=== PATIENT | male | born 1980 | race Caucasian/White ===

== ENCOUNTER 2018-06-20 09:01 | Outpatient (CLI) | payer OTHER, SELFPAY ==
[2018-06-20 09:32] VITALS: BP 149/92; PULSE 65; RESP 21; TEMP 37; O2SAT 98; BMI 32.5
[2018-06-20 10:29] LABS: Hemoglobin A1C 5.4 % (0.0-7.0)
[2018-06-20 10:32] LABS: Alanine Aminotransferase 30 U/L (12-78); Albumin Level 4.7 gm/dL (3.4-5.0); Albumin/Globulin Ratio 1.1 (1.1-1.8); Alkaline Phosphatase 107 U/L (46-116); Anion Gap 12.3 mEq/L (5-15); Aspartate Amino Transferase 16 U/L (15-37); Bilirubin,Total 0.7 mg/dL (0.2-1.0); Blood Urea Nitrogen 11 mg/dL (7-18); Calcium 9.7 mg/dL (8.5-10.1); Carbon Dioxide 30 mmol/L (21.0-32.0); Chloride 101 mmol/L (98-107); Chol/HDL Ratio 3.8 (1-3.5); Cholesterol 195 mg/dL (140-200); Creatinine Clearance Estimated 139 mL/min (50-200); Creatinine,Serum 1.02 mg/dL (0.70-1.30); Estimated Glomerular Filt Rate 82 ml/min (>60); GFR (African American) 99 ML/MIN (>60); Globulin 4.2 gm/dl (1.3-3.2); Glucose 94 mg/dL (74-106); HDL Cholesterol 52 mg/dL (27-67); LDL Cholesterol 129 mg/dL (0-130); Potassium 4.3 mmoL/L (3.5-5.1); Sodium 139 mmol/L (136-145); Total Protein,Serum 8.9 gm/dL (6.4-8.2); Triglycerides 72 mg/dL (30-200); VLDL Cholesterol 14 mg/dL (0-40)
== END 2018-06-20 10:42 | disposition home or self-care (01) ==
LOC: UTC.OUT 11:08
PROVIDERS: PCP Nurse Practitioner Family; Visit Provider Nurse Practitioner Family
DX: R42 Dizziness and giddiness (principal); Z79.899 Other long term (current) drug therapy
CPT/HCPCS: 80053; 80061; 83036

== ENCOUNTER → 2018-09-22 15:54 | Outpatient (POV) | payer OTHER, SELFPAY | PROVIDERS: Visit Provider Dermatology | DX: Z00.00 Encounter for general adult medical examination without abnormal findings (principal) ==

== ENCOUNTER 2020-12-04 20:18 | Emergency (ER) | payer OTHER, SELFPAY ==
[2020-12-04 21:10] VITALS: BP 160/90; PULSE 88; RESP 16; TEMP 38.2; O2SAT 97; BMI 32.5
[2020-12-04 21:44] LABS: UTC Influenza A Antigen Negative (Negative)
[2020-12-04 21:45] LABS: UTC Influenza B Antigen Negative (Negative)
--- NOTE | 2020-12-04 21:53 | HMH.EDUTC ---
[facility] [place] Clinical Impression: Viral syndrome Disposition: Home, Self-Care Condition on Discharge: Good Instructions: DI for COVID-19 (Suspected or Confirmed ), Preventing the Spread of Coronavirus Discharge Instructions Additional Instructions: *Monitor Temp, Over the counter Motrin or Tylenol as directed/as needed Tylenol every 4 hours and Motrin every 6 hours (as long as your family doctor has told you that you can take it) for fever or pain. and straight to ER if unable to lower temp less than 101.0 after medication given *Warm salt water gargles may help to soothe the throat *Throat Lozenges *Warm fluids like tea with honey may help to soothe the throat *Sleep elevated *Humidifier/Vaporizer Follow up IMMEDIATELY for new or worsening symptoms or no Noticeable improvement over the next 48-72 hours. 911 for difficulty breathing or swallowing You were tested for today for COVID19 your test result should be back in the next 24-48 hours, you was given handout on how to check for your results on [facility] if you have issues or no internet access you may call the [facility] You was given a handout with instructions for Self Quarantine and Self isolation for while you wait on test results and what to do if they are positive If you are positive the Health Dept will be contacting you also Make sure to take your Vitamins Vit. C Vit D and Zinc if you can take them Referrals: Gómez Degroot [Primary Care Provider] - As needed Forms: Work/School Release Time of Disposition: 21:55 Medical Decision Making - Joseph Inquiry Pt receiving controlled substance: No Joseph was queried for this patient: No Vital Signs: 12/04/20 21:10 Temperature 100.7 F H Temperature Source Oral Pulse Rate [Right Brachial] 88 Respiratory Rate 16 Blood Pressure [Right Arm] 160/90 H Blood Pressure Mean [Right Arm] 113 Blood Pressure Source [Right Arm] Automatic Cuff Blood Pressure Position [Right Arm] Sitting 02 Sat by Pulse Oximetry 97 Oxygen Delivery Method Room Air - Lab Data Lab Results 12/04/20 21:38: Influenza Type A Ag Negative, Influenza Type B Ag Negative Orders (Tests/Meds): ORDERS Category Date Time Status Covid-19 Nasal PCR ([facility]) Routine Lab 12/04/20 21:39 Ordered [facility] HPI - General Stated complaint: covid test Time Seen by Provider: 12/04/20 21:53 Mode of Arrival: Ambulatory Source of Information: Patient Limitations: No Limitations Description of Symptoms (Recalled from Triage Doc. by RN): PATIENT C/O FEVER, FATIGUE, COUGH, AND BODY ACHES HEENT Symptoms (Recalled from RN notes): Yes Resp Symptoms (Recalled from RN notes): No Skin Symptoms (Recalled from RN notes): No MS Symptoms (Recalled from RN notes): No Functional Status (Recalled from RN notes): WNL - History of Present Illness Provider Complaint: Patient states that he is concerned he may have COVID and wanted to get tested States that he has been having body aches, chills, feeling achy and tired so he came in to get tested States that he has not been exposed that is aware of - Related Data Allergies Allergy/AdvReac Type Severity Reaction Status Date / Time No Known Allergies Allergy Verified 06/20/18 09:36 - Worker's Comp Is this a Worker's Comp case?: No [facility] History - Hepatitis A Screen Drug use history?: No High risk sexual behaviors?: No History of sexually transmitted infection?: No Currently employed?: No Childcare worker?: No Do you have indoor plumbing?: Yes Do you have electricity?: Yes Attestation statement:: This patient has been screened for Hepatitis A risk factors. I have reviewed the patient's past medical history: Yes Medical History: Denies:: Cancer, Diabetes Mellitus Type 1, Diabetes Mellitus Type 2, MRSA Amputation: No - Social History Alcohol Intake: never Occupational Status: employed ROS Obtained: Yes All systems reviewed & no additional complaints, Yes Systems reviewed as appropriat
[2020-12-04 21:56] VITALS: BP 160/90; PULSE 88; RESP 16; TEMP 38.2; O2SAT 97
== END 2020-12-04 22:15 | disposition home or self-care (01) ==
PROVIDERS: Emergency Provider Nurse Practitioner; PCP Family Medicine
DX: U07.1 COVID-19 (principal); B34.9 Viral infection, unspecified
CPT/HCPCS: 87804; 99202; C9803; G0463; U0003; U0005

== ENCOUNTER → 2021-10-03 14:38 | Outpatient (CLI) | payer BC, SELFPAY ==
[2021-10-03 15:11] LABS: Basophils # 0.2 K/mm3 (0-0.2); Basophils % 2.2 % (0.1-2.0); Eosinophils # 0.2 K/mm3 (0.0-0.4); Eosinophils % 2.5 % (0.1-12.0); Hematocrit 46.1 % (42.0-52.0); Lymphocytes # 2.8 K/mm3 (0.7-4.5); Lymphocytes % 29.1 % (10-50); Mean Corpuscular HGB Conc 32.6 g/dL (31.8-35.4); Mean Corpuscular Volume 88.8 fl (80-94); Mean Platelet Volume 9.1 fl (7.4-10.4); Monocytes # 0.6 K/mm3 (0.1-1.0); Monocytes % 6.6 % (1.7-9.3); Neutrophils # 5.8 K/mm3 (1.8-7.8); Neutrophils % 59.7 % (37.0-80.0); Platelet Count 376 K/mm3 (142-424); Red Blood Count 5.19 M/mm3 (4.60-6.20); Red Cell Distribution Width 13.4 % (11.5-17.5); White Blood Count 9.7 K/mm3 (4.8-10.8)
[2021-10-03 15:25] LABS: Chloride 102 mmol/L (98-107); Potassium 4.1 mmoL/L (3.5-5.1); Sodium 138 mmol/L (136-145)
[2021-10-03 15:28] LABS: Blood Urea Nitrogen 9 mg/dl (9-20); Estimated Glomerular Filt Rate 107 ml/min (>60); GFR (African American) 129 ML/MIN (>60)
[2021-10-03 15:29] LABS: Anion Gap 11.1 mEq/L (5-15); Calcium 9.9 mg/dl (8.4-10.2); Carbon Dioxide 29 mmol/L (22.0-30.0); Glucose 90 mg/dl (74-100)
== END ==
PROVIDERS: PCP Nurse Practitioner Family; Visit Provider Internal Medicine
DX: Z01.812 Encounter for preprocedural laboratory examination (principal); Z20.822 Contact with and (suspected) exposure to COVID-19; R07.9 Chest pain, unspecified
CPT/HCPCS: 36415; 80048; 85025; C9803; U0003; U0005

== ENCOUNTER 2021-10-05 07:29 | Day surgery (SDC) | payer BC, SELFPAY ==
[2021-10-05] VITALS (12 sets, daily range): BP systolic 111–152; BP diastolic 64–94; PULSE 62–80; RESP 18; TEMP 36.2; O2SAT 92–99; BMI 31.8
--- NOTE | 2021-10-05 | IR_ITS ---
APPROVED REPORT Patient Location: Outpatient [employer] Developer: KEATON Casarez RT (R) PROCEDURES Left heart catheterization Left ventriculogram Selective coronary angiogram INDICATION Abnormal echocardiogram with regional wall motion abnormality, Angina pectoris, Strong family history of coronary artery disease, Informed consent was obtained prior to the procedure. COMPLICATIONS None Estimated Blood Loss: Less than 10 mls TECHNIQUE One percent lidocaine used to anesthetize the right anterior aspect of the wrist. The right radial artery was accessed via the Seldinger technique. A 6 Stateless sheath was placed in the right radial artery. 2.5 mg of verapamil, 800 mcg of nitroglycerin, 1mg Lidocaine and 5000 U Heparin were given through the arterial sheath. The papa catheter and 6 Stateless JL 3 guide catheter were also used to perform left heart catheterization, left ventriculogram and selective coronary angiogram. At the end of the procedure the sheath was removed good hemostasis was achieved using Traclet band, patient was transferred to the postop holding area in stable condition. ANGIOGRAPHIC RESULTS The left main artery Normal The left anterior descending artery Normal The circumflex artery Dominant normal The right coronary artery Normal The WELCH ventriculogram reveals Normal 65% The left ventricular end-diastolic pressure Normal 10 mmHg IMPRESSION Normal coronary arteries Normal ejection fraction Normal left ventricular end-diastolic pressure PLAN 1. Evaluation of noncardiac chest pain Electronically signed by : Jason Johnston MD 10/05/2021 10:50:51
--- NOTE | 2021-10-05 | CA_ITS ---
APPROVED REPORT EXAM: Comprehensive 2D, Doppler, and color-flow Echocardiogram Fire Investigation Manager: Gricelda Reeves, RT(R) Ht: 5 ft 9 in Wt: 215lbs BSA: 2.13 BP: 145/97 mmHg Indications: CM, ABN stress echo, abn EKG, r/o HOCM, HTN, hyperlipidemia, CP, Sob Echo Enhancing Agent Indication: Endocardial border delineation Agent(s) / Amount(s) Used: Definity 2 cc 2D Dimensions LVOT 2.02 cm (M/F) 1.5-2.5 LA Volume 27.00 mL LA Volume Index 12.67 mL/m2 (M/F) 16-34 M-Mode Dimensions RVDd 2.72 cm (0.9-2.6) LA Diam 3.87 cm (1.9-4.0) LVDd 4.44 cm (3.5-5.7) Ao Diam 3.09 cm (2.0-3.7) LVDs 3.22 cm (3.5-5.7) IVSd 0.89 cm (0.6-1.1) PWd 0.75 cm (0.6-1.1) EF (Teich) 53.60% FS 27.50% EDV (Teich) 89.60 mL ESV (Teich) 41.60 mL LV Diastology E Decel Time 260.00 (160-240 msec) E/A Ratio 1.39 MED E' 10.50 (< 7 cm/sec) E'/MED E' Ratio 9.62 (>14) LAT E' 17.80 (<10 cm/sec) E/LAT E' Ratio 5.67 (>14) Aortic Valve LVOT Max 116.00 (70-110 cm/s) LVOT VTI 22.71 cm Mitral Valve MV A Velocity 73.00 (40-130 cm/s) E/A Ratio 1.39 MV Decel. Time 260.00 (160-240 ms) Left Ventricle Left atrium is normal size, left ventricle is normal size, left ventricle wall thickness is upper limit of the normal, there is no evidence of hypertrophic cardiomyopathy, estimated ejection fraction 55% with no regional wall motion abnormality, diastolic parameters are within normal range. Definity contrast was utilized to delineate the endocardial surfaces. Right Ventricle Right atrium and right ventricle are normal size and contractility. Aortic Valve Aortic valve is grossly normal there is no aortic stenosis or aortic insufficiency. Mitral Valve Mitral valve grossly normal, there is trace mitral regurgitation. Tricuspid Valve Tricuspid grossly normal, there is trace tricuspid regurgitation, tricuspid regurgitation jet velocity is inadequate for calculation of the right ventricular systolic pressure. Pulmonic Valve Pulmonic valve is poorly visualized. Great Vessels Aortic root is normal size. Inferior vena cava is abnormal. Pericardium No significant pericardial effusion noted. Conclusion 1. Normal left ventricular size, left ventricular systolic function, estimated ejection fraction 55% with minimal motion abnormality, no significant left ventricular enlargement and evidence of systolic Evidence of hypertrophy cardiomyopathy, diastolic parameters are within normal limits. 2. Trace mitral and tricuspid regurgitation. 3. No significant pericardial effusion. 4. Inferior vena cava is normal size with normal inspiratory collapse. Electronically signed by : Vern Grove MD 10/05/2021 15:01:01
--- NOTE | 2021-10-05 08:06 | HMH.ANESCL ---
[facility] Anesthesia Checklist - Patient Identification Patient Identification: Arm Band - Structural Data Admitted From: Home Planned Operative Procedure/s: HALINA Consent for Planned Operative Procedure(s) Verified: Yes - NPO Status Verified Time NPO: 00:00 - Airway Assessment C-Spine Mobility Assessed: Yes TMJ Mobility Assessed: Yes Dentition: Good Dentition - Neurological Assessment Level of Consciousness: Awake Hx Seizures: No Numbness or tingling in extremities: No - Anesthesia Plan Anesthesia Risk discussed: Yes Anesthesia Plan: Verified ASA Class: II Anesthesia Type: MAC [facility] History I have reviewed the patient's past medical history: Yes Medical History: Reports:: Asthma, Hypertension Denies:: Cancer, Diabetes Mellitus Type 1, Diabetes Mellitus Type 2, Internal Pacemaker, MRSA *Have you ever received a pneumonia vaccine?: No *Have you received a flu vaccine this season?: No Anesthesia experience/problems:: None Other Surgeries: Yes: Hernia Repair. No: Pacemaker Amputation: No Fractures: No - *Social History Last grade of school completed: 9th or 10th Smoking Status: Never smoker Alcohol Intake: never Substance Use Type: denies use *Occupational Status:: employed Housing: house Household Members: spouse *Travel in the last 8 weeks: None Family Hx:: Hypertension, Heart Attack, Stroke, Diabetes, Coronary Artery Disease, Cancer
--- NOTE | 2021-10-05 08:22 | HMH.PROC ---
[facility] Procedure Note Procedure Note:: Procedure cancelled per Dr. Grove
--- NOTE | 2021-10-05 13:53 | SUR.PHASEII ---
See cardiac cath for d/c assessment
== END 2021-10-05 13:54 | disposition home or self-care (01) ==
LOC: CATHLAB 07:33
PROVIDERS: Internal Medicine; Visit Provider Internal Medicine Cardiovascular Disease
DX: I42.9 Cardiomyopathy, unspecified (principal); I25.118 Atherosclerotic heart disease of native coronary artery with other forms of angina pectoris; Z82.49 Family history of ischemic heart disease and other diseases of the circulatory system; I10 Essential (primary) hypertension; R94.31 Abnormal electrocardiogram [ECG] [EKG]; R94.39 Abnormal result of other cardiovascular function study; Z79.899 Other long term (current) drug therapy
CPT/HCPCS: 93306; 93312; 93458; 99152; C1725; C1769; J1644; Q9957; Q9967

== ENCOUNTER → 2022-05-20 09:59 | Outpatient (CLI) | payer BC, OTHER, SELFPAY ==
[2022-05-20 11:24] LABS: Alanine Aminotransferase 36 U/L (12-78); Albumin Level 4.7 g/dl (3.5-5.0); Alkaline Phosphatase 87 U/L (38-126); Aspartate Amino Transferase 30 U/L (17-59); Bilirubin,Direct 0.3 mg/dl (0.0-0.4); Bilirubin,Indirect 0.5 mg/dL (0.0-0.9); Bilirubin,Total 0.8 mg/dl (0.2-1.3); Bilirubin,Unconjugated 0.6 mg/dL (0.0-1.1); Chol/HDL Ratio 3.9 (1-3.5); Cholesterol 163 mg/dl (140-200); HDL Cholesterol 42 mg/dl (40-60); Total Protein,Serum 7.5 g/dl (6.3-8.2); Triglycerides 103 mg/dl (30-150); VLDL Cholesterol 21 mg/dL (0-40)
[2022-05-20 11:35] LABS: Direct LDL Cholesterol 100.31 mg/dL (100-129)
== END ==
PROVIDERS: PCP Nurse Practitioner Family; Visit Provider Nurse Practitioner
DX: I10 Essential (primary) hypertension (principal); E78.2 Mixed hyperlipidemia
CPT/HCPCS: 36415; 80061; 80076

== ENCOUNTER 2023-05-26 11:49 | Outpatient (CLI) | payer BC, SELFPAY | END 2023-05-26 23:59 | LOC: RT 11:50 | PROVIDERS: PCP Nurse Practitioner Family; Visit Provider Nurse Practitioner | DX: I42.1 Obstructive hypertrophic cardiomyopathy (principal); R00.1 Bradycardia, unspecified | CPT/HCPCS: 93270 ==

== ENCOUNTER 2023-06-16 09:47 | Outpatient (CLI) | payer BC, SELFPAY ==
--- NOTE | 2023-06-16 10:00 | MR_ITS ---
APPROVED REPORT Fisheries Technician: CLINICAL INDICATION HCM evaluation TECHNIQUE Image Acquisition: Cardiac magnetic resonance (CMR) was performed on Siemens Espree MRI 1.5T scanner. Software platform sequences were performed using the [employer] MR B19 platform. A set of three-plane, low-resolution, large [id number] localizers were initially acquired. Then axial, coronal, sagittal TrueFISP, as well as axial HASTE images, were obtained. These were followed by gated TrueFISP breathold cinematic sequences obtained in the short axis with 8 mm slices and 2 mm gaps, 2-chamber (vertical long axis), 3-chamber, 4-chamber (horizontal long axis). A bolus of contrast was injected intravenously with first-pass sequences obtained in the short axis and four-chamber planes. After approximately 10 minutes, a TI chromosomal disorders counselor sequence was performed to determine the optimal TI time. Using the optimized TI time, delayed contrast enhancement segmented inversion???recovery TurboFLASH sequences were obtained in the short axis, 2-chamber, 3-chamber, and 4-chamber projections. 2D-velocity phase mapping was performed. Functional parameters were calculated by offline analysis on an independent workstation ([employer], [employer]). Contrast: ProHance??? (Gadoteridol) FINDINGS MORPHOLOGY AND FUNCTION Left ventricle: The left ventricle is normal in size. The indexed left ventricular end-diastolic volume (LVEDVi) is 63 ml/m2 (reference range 57-105 ml/m2 in males, 56-96 ml/m2 in females). Normal left ventricular systolic function is present. There is normal left ventricular wall thickness (maximum LV wall thickness is 8.3 mm). There are no regional wall motion abnormalities noted. LVEF is calculated at 58.4% (reference range 57-77%). Right ventricle: The right ventricle is normal in size. The indexed right ventricular end-diastolic volume (RVEDVi) is 70 ml/m2 (reference range 61-121 ml/m2 in males, 48-112 ml/m2 in females). Normal right ventricular systolic function is present. RVEF is calculated at 54.6% (reference range 52-72% in males, 51-71% in females). Atria: The left atrium is normal in size. The maximum indexed left atrial volume is 29 ml/m2 (reference range 26-52 ml/m2 in males, 27-53 ml/m2 in females). The right atrium is normal in size. The maximum indexed right atrial volume is 24 ml/m2 (reference range 18-90 ml/m2). Aorta: The diameter of the aortic annulus is normal, measuring 27 mm (coronal view reference range 21-30 mm in males, 19-27 mm in females). The diameter of the aortic sinus is normal, measuring 35 mm (coronal view reference range 25-42 mm in males, 24-36 mm in females). The diameter of the sinotubular junction is normal, measuring 26 mm (coronal view reference range 18-32 mm in males, 18-28 mm in females). The diameters of the ascending and descending thoracic aorta are normal. Main pulmonary artery: The main pulmonary artery diameter is normal. Pericardium: The pericardial thickness is normal. The pericardial thickness measures 1.5 cm (normal < 4.0 cm). There is no pericardial effusion. VALVES The valvular morphologies in the visualized sequences appear normal. There is no significant valvular stenosis or regurgitation of the mitral, aortic, tricuspid, or pulmonic valve noted visually. Systolic anterior motion of the mitral valve is not visualized. Ratio of pulmonary to systemic flow, Qp:Qs ratio = 1.0 (normal < or = 1.2), demonstrating no evidence of hemodynamically significant shunt. TISSUE CHARACTERIZATION Resting Perfusion: Normal myocardial blood flow at rest. No evidence of resting hypoperfusion. Myocardial Fibrosis and/or edema: Normal gadolinium kinetics are present. No evidence of late gadolinium enhancement is noted, consistent with absence of myocardial scarring, infarction, or necrosis. T2-weighted imaging demonstrates no evidence of myocardial edema or inflammation. OTHER No other significant findings are noted. However, this exam is focused on the cardiac structure and function. IMPRESSION Normal LV size with normal LV systolic function. LVEDVi= 63 ml/m2 and LVEF= 58.4%. Normal RV size with normal RV systolic function. RVEDVi= 70 ml/m2 and RVEF= 54.6%. No atrial enlargement. No CMR evidence of myocardial scarring, infarction, or necrosis. No evidence of myocardial edema or inflammation. Perfusion analysis demonstrates normal blood flow at rest with no evidence of resting hypoperfusion. Ratio of pulmonary to systemic flow, Qp:Qs ratio = 1.0 (normal < or = 1.2), demonstrating no evidence of hemodynamically significant shunt. Overall the study demonstrates normal biventricular systolic function. There is no increased LV wall thickness. No CMR evidence of HCM in this study. COMPARISON None CRITICAL RESULT None COMMUNICATION Per this written report The findings of this cardiac MR were reviewed, reported, and signed by Anthony Foster MD (Legal Investigator). Conclusion Electronically signed by : Phyllis Foster MD 06/19/2023 15:11:55
[2023-06-16 10:18] LABS: Blood Urea Nitrogen 11 mg/dl (9-20); Estimated Glomerular Filt Rate 92 ml/min (>60); GFR (African American) 111 ML/MIN (>60)
[2023-06-16] MEDS: SODIUM CHLORIDE 0.9% 10ML SYR (RAD ONLY) 10 ML IV (11:25)
[2023-06-16] MEDS: SODIUM CHLORIDE 0.9% 50ML BAG 25 ML IV (11:25)
[2023-06-16] MEDS: GADOTERIDOL INJ 17ML SYRINGE 22 ML IV (11:25)
== END 2023-06-16 23:59 ==
LOC: RAD 09:48
PROVIDERS: PCP Nurse Practitioner Family; Visit Provider Nurse Practitioner
DX: I42.1 Obstructive hypertrophic cardiomyopathy (principal); R00.1 Bradycardia, unspecified
CPT/HCPCS: 36415; 75561; 82565; 84520; A9576

== ENCOUNTER 2024-01-23 08:55 | Outpatient (CLI) | payer BC, SELFPAY ==
[2024-01-23 09:29] LABS: Basophils # 0.1 K/mm3 (0-0.2); Basophils % 0.6 % (0.1-2.0); Eosinophils # 0.2 K/mm3 (0.0-0.4); Eosinophils % 1.8 % (0.1-12.0); Hematocrit 41.9 % (42.0-52.0); Hemoglobin 14.3 g/dL (14.1-18.0); Lymphocytes # 2.4 K/mm3 (0.7-4.5); Mean Corpuscular HGB Conc 34.2 g/dL (31.8-35.4); Mean Corpuscular Hemoglobin 29.3 pg (27.0-31.2); Mean Corpuscular Volume 85.5 fl (80-94); Mean Platelet Volume 8.3 fl (7.4-10.4); Monocytes # 0.6 K/mm3 (0.1-1.0); Monocytes % 6.1 % (1.7-9.3); Neutrophils # 5.9 K/mm3 (1.8-7.8); Neutrophils % 65.4 % (37.0-80.0); Platelet Count 309 K/mm3 (142-424); Red Cell Distribution Width 13.4 % (11.5-17.5); White Blood Count 9.1 K/mm3 (4.8-10.8)
[2024-01-23 09:54] LABS: Albumin Level 4.3 g/dl (3.5-5.0); Chloride 103 mmol/L (98-107); Sodium 139 mmol/L (136-145)
[2024-01-23 09:56] LABS: Blood Urea Nitrogen 11 mg/dl (9-20); Estimated Glomerular Filt Rate 92 ml/min (>60); GFR (African American) 111 ML/MIN (>60)
[2024-01-23 09:57] LABS: Alanine Aminotransferase 22 U/L (12-78); Alkaline Phosphatase 75 U/L (38-126); Aspartate Amino Transferase 22 U/L (17-59); Bilirubin,Direct 0.1 mg/dl (0.0-0.4); Bilirubin,Indirect 0.9 mg/dL (0.0-0.9); Bilirubin,Unconjugated 0.9 mg/dL (0.0-1.1); Calcium 9.5 mg/dl (8.4-10.2); Carbon Dioxide 29 mmol/L (22.0-30.0); Cholesterol 149 mg/dl (140-200); Glucose 112 mg/dl (74-100); Magnesium 1.8 mg/dl (1.6-2.3); Total Protein,Serum 6.8 g/dl (6.3-8.2); Triglycerides 81 mg/dl (30-150); VLDL Cholesterol 16 mg/dL (0-40)
[2024-01-23 09:58] LABS: Chol/HDL Ratio 3.5 (1-3.5); HDL Cholesterol 43 mg/dl (40-60)
[2024-01-23 10:08] LABS: Direct LDL Cholesterol 89.93 mg/dL (100-129)
[2024-01-23 10:14] LABS: Free T4 (Free Thyroxine) 1.01 ng/dl (0.78-2.19)
[2024-01-23 10:16] LABS: Hemoglobin A1C 5.5 % (4.0-6.0)
[2024-01-23 10:28] LABS: Thyroid Stimulating Hormone 3.08 uIU/mL (0.465-4.68)
== END 2024-01-23 23:59 | disposition home or self-care (01) ==
LOC: LAB 08:56
PROVIDERS: PCP Nurse Practitioner Family; Visit Provider Nurse Practitioner
DX: E78.2 Mixed hyperlipidemia (principal); Z82.49 Family history of ischemic heart disease and other diseases of the circulatory system; I10 Essential (primary) hypertension
CPT/HCPCS: 36415; 80048; 80061; 80076; 83036; 83735; 84439; 84443; 85025

== ENCOUNTER 2024-01-30 10:00 | Outpatient (CLI) | payer BC, SELFPAY ==
--- NOTE | 2024-01-30 10:03 | US_ITS ---
FINAL REPORT CLINICAL HISTORY: RUQ pain COMPARISON: None FINDINGS: Sonographic images of the right upper quadrant were obtained. The pancreas is partially obscured. There is increased echogenicity in the liver consistent with fatty infiltration of the liver. The gallbladder appears normal without evidence of gallstones.There is no evidence of biliary ductal dilatation.The common duct measures 5 mm. Limited images of the right kidney are unremarkable. IMPRESSION: Fatty infiltration of the liver. Reviewed, Interpreted and Dictated by Jose Armando Moran III, MD Transcribed by Cherri Nation Authenticated and . [facility]
[2024-01-30 10:37] LABS: Basophils # 0.1 K/mm3 (0-0.2); Basophils % 0.8 % (0.1-2.0); Eosinophils # 0.1 K/mm3 (0.0-0.4); Eosinophils % 1.5 % (0.1-12.0); Hematocrit 41.7 % (42.0-52.0); Hemoglobin 14.9 g/dL (14.1-18.0); Lymphocytes # 2.2 K/mm3 (0.7-4.5); Lymphocytes % 25.7 % (10-50); Mean Corpuscular HGB Conc 35.8 g/dL (31.8-35.4); Mean Corpuscular Hemoglobin 29.7 pg (27.0-31.2); Mean Corpuscular Volume 82.9 fl (80-94); Mean Platelet Volume 8.8 fl (7.4-10.4); Monocytes # 0.6 K/mm3 (0.1-1.0); Monocytes % 6.8 % (1.7-9.3); Neutrophils # 5.6 K/mm3 (1.8-7.8); Neutrophils % 65.2 % (37.0-80.0); Platelet Count 292 K/mm3 (142-424); Red Blood Count 5.02 M/mm3 (4.60-6.20); Red Cell Distribution Width 13.6 % (11.5-17.5); White Blood Count 8.6 K/mm3 (4.8-10.8)
[2024-01-30 11:00] LABS: Albumin Level 4.6 g/dl (3.5-5.0); Chloride 102 mmol/L (98-107); Sodium 140 mmol/L (136-145)
[2024-01-30 11:01] LABS: Potassium 4.1 mmoL/L (3.5-5.1)
[2024-01-30 11:03] LABS: Alanine Aminotransferase 28 U/L (12-78); Albumin/Globulin Ratio 1.9 (1.1-1.8); Alkaline Phosphatase 77 U/L (38-126); Amylase 55 U/L (30-110); Anion Gap 13.1 mEq/L (5-15); Aspartate Amino Transferase 28 U/L (17-59); Bilirubin,Total 0.6 mg/dl (0.2-1.3); Blood Urea Nitrogen 11 mg/dl (9-20); Calcium 9.5 mg/dl (8.4-10.2); Carbon Dioxide 29 mmol/L (22.0-30.0); Estimated Glomerular Filt Rate 105 ml/min (>60); GFR (African American) 127 ML/MIN (>60); Globulin 2.4 g/dL (1.3-3.2); Glucose 108 mg/dl (74-100)
[2024-01-30 11:04] LABS: Lipase 48 U/L (23-300)
== END 2024-01-30 23:59 | disposition home or self-care (01) ==
LOC: RAD 10:01
PROVIDERS: PCP Nurse Practitioner Family; Visit Provider Surgery
DX: R10.11 Right upper quadrant pain (principal)
CPT/HCPCS: 36415; 76705; 80053; 82150; 83690; 85025

== ENCOUNTER 2024-02-24 10:27 | Outpatient (CLI) | payer BC, SELFPAY ==
--- NOTE | 2024-02-24 10:28 | NM_ITS ---
FINAL REPORT CLINICAL HISTORY: right upper quad pain 10:50 am 7.85 mci tc choletec 2 mcg of cck no pain during cck COMPARISON: None FINDINGS: Sequential anterior projection images of the abdomen were obtained after the intravenous injection of 7.85 mCi technetium 99m Choletec. There is normal uptake of radiotracer by the liver. The bile ducts are visualized by 5 minutes. Gallbladder activity is seen by 5 minutes. Bowel activity is noted by 35 minutes. After 1 hour, 2 ?g of CCK was injected intravenously for calculation of gallbladder ejection fraction. The gallbladder ejection fraction is 95% %, which is within normal limits. IMPRESSION: No evidence of cystic duct or bile duct obstruction. Normal gallbladder ejection fraction of 95%. Reviewed, Interpreted and Dictated by Jose Armando Moran III, MD Transcribed by Cherri Nation Authenticated and [facility]
[2024-02-24] MEDS: SODIUM CHLORIDE 0.9% 10ML SYR (RAD ONLY) 10 ML IV (13:03)
[2024-02-24] MEDS: ISOTOPE CHOLETECH;1 DOSE (UP TO 15 MCI) IV (13:03)
[2024-02-24] MEDS: SINCALIDE 2 MCG in 0.9 % SODIUM CHLORIDE 50 ML 100 MCG IV (13:03)
== END 2024-02-24 23:59 | disposition home or self-care (01) ==
LOC: RAD 10:28
PROVIDERS: PCP Nurse Practitioner Family; Visit Provider Surgery
DX: R10.11 Right upper quadrant pain (principal)
CPT/HCPCS: 78227; A9537; J2805

== ENCOUNTER 2024-04-07 16:32 | Outpatient (CLI) | payer BC, SELFPAY ==
--- NOTE | 2024-04-07 16:44 | XR_ITS ---
PROCEDURE INFORMATION: Exam: XR Abdomen Exam date and time: 04/07/2024 4:44 PM Age: 43 years old Clinical indication: Constipation; Additional info: Assess fecal burden TECHNIQUE: Imaging protocol: Radiologic exam of the abdomen. Views: Frontal supine view of the abdomen. 1 View. COMPARISON: No prior relevant images. FINDINGS: Gastrointestinal tract: Nonobstructive bowel gas pattern. Moderate fecal burden. Mild gaseous distension of the stomach. No evidence of pneumoperitoneum. Bones/joints: No acute abnormality. IMPRESSION: Nonobstructive bowel gas pattern. Moderate fecal burden.
== END 2024-04-07 23:59 | disposition home or self-care (01) ==
LOC: LAB 16:33
PROVIDERS: PCP Nurse Practitioner Family; Visit Provider Internal Medicine Gastroenterology
DX: K59.00 Constipation, unspecified (principal); R14.0 Abdominal distension (gaseous)
CPT/HCPCS: 74018

== ENCOUNTER 2024-04-09 10:58 | Outpatient (CLI) | payer BC, SELFPAY ==
[2024-04-13 02:08] LABS: Pancreatic Elastase, Fecal 455 (>200)
== END 2024-04-09 23:59 | disposition home or self-care (01) ==
LOC: LAB.DROPOF 10:59
PROVIDERS: PCP Nurse Practitioner Family; Visit Provider Internal Medicine Gastroenterology
DX: R14.0 Abdominal distension (gaseous) (principal)
CPT/HCPCS: 82656

== ENCOUNTER 2024-05-29 08:41 | Emergency (ER) | payer BC, SELFPAY ==
[2024-05-29 08:45] VITALS: BP 164/91; PULSE 67; RESP 18; O2SAT 97; BMI 32.3
--- NOTE | 2024-05-29 09:14 | PC.NURSE ---
dr ceballos at bedside
--- NOTE | 2024-05-29 09:25 | HMH.EDGENADL ---
Discharge Plan Disposition Patient Disposition: Home, Self-Care Prescriptions Prescriptions: New cephalexin 500 mg capsule 500 mg PO QID 10 Days Qty: 40 0RF sulfamethoxazole-trimethoprim [Bactrim DS] 800-160 mg tablet 1 tab PO BID 10 Days Qty: 20 0RF fluconazole 150 mg tablet 150 mg PO ONCE 1 Days Qty: 2 0RF Rx Instructions: repeat in one week if not improving No Action ezetimibe 10 mg tablet 10 mg PO DAILY Rx Instructions: Take 1 capsule by mouth once a day calcium polycarbophil [Fiber (calcium polycarbophil)] 625 mg tablet 1,250 mg PO TID levothyroxine 88 mcg tablet 88 mcg PO DAILY cetirizine [Zyrtec] 10 mg tablet 10 mg PO DAILY PRN montelukast 10 mg tablet 10 mg PO DAILY simvastatin 10 mg tablet 10 mg PO DAILY Qty: 30 3RF losartan 25 mg tablet 25 mg PO BID Qty: 60 5RF Referrals Follow up/Referrals: Aurelio Varner APRN [Primary Care Provider] - See instructions Activity Restrictions/Add. Instructions Additional Instructions/Restrictions: You have mild cellulitis around your surgical site where your toenail was removed. No evidence of a drainable fluid collection on bedside ultrasound oral antibiotics should cover this. He will start to see an improvement in 48 to 72 hours if you do not please return. Additionally if you have spreading redness or high fevers greater than 100.4 please return. Additionally please follow-up with the provider that performed this procedure in 2 to 3 days for wound reevaluation. Lastly you have been prescribed fluconazole given your history of yeast infections after antibiotics you may take this if you do in fact develop a yeast infection. Clinical Impressions Clinical Impression: Post op infection, Cellulitis of great toe Instructions Patient Instructions: DI for Laceration Repair Print Language Print Language: Telugu Discharge ED Provider: Sukh Mcwilliams General Adult HPI General Chief complaint: Wound/Laceration Stated complaint: right big toe poss. infection aft. toenail removal Time Seen by Provider: 05/29/24 09:12 Mode of Arrival: Ambulatory Source of Information: Patient Description of Symptoms (Recalled from ER Triage Doc. by RN): Patient presents ambulatory to triage. States he had his toenail removed on his great toe of his bilateral feet on Friday. States he is concerned the right nailbed is infected. States the right nailbed feels more tight, has pressure in it, has redness, and also has purulent drainage from the nailbed. Denies fever. Denies N/V. History of Present Illness HPI narrative: Patient is a 43-year-old presenting today for concerns for wound infection after recent bilateral toenail removal on Friday. Left toenail is healing well however the right toenail has some purulent debris in the nailbed in addition to some surrounding redness and tenderness to the touch at the distal aspect of the toe. No fevers or chills or systemic symptoms. Patient does have a history of being prediabetic has had yeast infections around his penis with antibiotic use in the past. No antibiotic allergies to his knowledge. Related Data Home Medications ?Medication ?Instructions ?Recorded ?Confirmed cetirizine 10 mg tablet (Zyrtec) 10 mg PO DAILY PRN 10/01/21 05/26/24 levothyroxine 88 mcg tablet 88 mcg PO DAILY 10/01/21 05/26/24 montelukast 10 mg tablet 10 mg PO DAILY 10/01/21 05/26/24 calcium polycarbophil 625 mg 1,250 mg PO TID 04/07/24 05/26/24 tablet (Fiber (calcium polycarbophil)) ezetimibe 10 mg tablet 10 mg PO DAILY 04/07/24 05/26/24 Previous Rx's ?Medication ?Instructions ?Recorded simvastatin 10 mg tablet 10 mg PO DAILY #30 tabs 05/26/23 losartan 25 mg tablet 25 mg PO BID #60 tabs 02/04/24 cephalexin 500 mg capsule 500 mg PO QID 10 days #40 caps 05/29/24 fluconazole 150 mg tablet 150 mg PO ONCE 1 day #2 tabs 05/29/24 sulfamethoxazole 800 1 tab PO BID 10 days #20 tabs 05/29/24 mg-trimethoprim 160 mg tablet (Bactrim DS) Allergies Allergy/AdvReac Type Severity Reaction Status Date / Time No Known Allergies Allergy Verified 05/26/24 16:01 [facility] Disclaimer: The information contained in this section may have been updated after the patient was seen, as this information can be updated by other users. Medical History Plantar fasciitis, bilateral HLD (hyperlipidemia) RITU (obstructive sleep apnea) Bradycardia Chest pain Abnormal electrocardiography Family History Other Asthma Cancer Coronary artery disease Heart attack Hypertension Stroke Social History Smoking Status: Never smoker alcohol intake: never substance use type: denies use current occupational status: employed Travel in the last 8 weeks: None household members: spouse housing: house current occupational exposures/hazards: No caffeine: Yes Have you lived/traveled outside [place] in past 30 days?: No Contact w/someone who lives/traveled outside US past 30 days?: No Exposure to someone with infectious disease in past 14 days?: No Do you have a fever (greater than 100.4 F or 38 C)?: No Have you tested positive for COVID-19: No Exposed to someone with COVID-19 in past 14 days?: No Do you have a sore throat?: No Do you have a cough?: No Do you have any weakness?: No Do you have any diarrhea?: No Are you experiencing any unusual bleeding?: No Do you have any muscle aches/pain?: No Do you have any abdominal pain?: No Are you experiencing loss of taste or smell?: No Other Medical History Have you received the Flu Vaccine for this season: No Have you received the Pneumonia Vaccine: No ROS Obtained: Yes All systems reviewed & no additional complaints except as documented Physical Exam General General appearance: alert and in no apparent distress Respiratory Respiratory exam: Present normal lung sounds bilaterally Cardiovascular Cardiovascular exam: Present regular rate Extremities Exam Extremities exam: Present other (Bilateral great toenails are surgically absent on the right nailbed there is some purulent/proteinaceous debris and surrounding erythema and tenderness on the tip of the toe no fluctuance left toenail is well-healing) Neurological Exam Neurological exam: Present alert and oriented X3 Medical Decision Making Medical Records Screening: Per USPSTF and CDC recommendations, given the prevalence of disease in our region, it is our hospital?s policy to screen for HIV and viral Hepatitis for all patients aged 18 and over and those with ongoing risk factors. Joseph Inquiry Pt receiving controlled substance: No Vital Signs: 05/29/24 08:45 Pulse Rate [Radial] 67 Respiratory Rate 18 Blood Pressure [R Arm] 164/91 H Blood Pressure Mean [R Arm] 115 02 Sat by Pulse Oximetry 97 Oxygen Delivery Method Room Air Orders (Tests/Meds): ORDERS Category Date Time Status POCUS Point of Care (ER Only) Stat Exams 05/29/24 09:16 Ordered Medical Decision Narrative: Patient with above history and physical no evidence of systemic infection. The right toenail bed is infected there is some mild purulent debris likely a staph infection there is some surrounding cellulitis bedside ultrasound does not demonstrate a local drainable fluid collection. Oral antibiotics are appropriate at this point. Bactrim and Keflex have been sent. Additionally patient was prescribed fluconazole as he has a history of superimposed yeast infections when taking antibiotics. Patient was discharged in stable condition. Procedures Miscellaneous Procedure Procedure Performed: Limited soft tissue ultrasound Indication: Soft tissue redness Identified structures: Location: Right great Findings: No evidence of a localize drainable fluid collection Impression: No ultrasonographic evidence of advancing lightest or drainable fluid collection Images were saved to permanent archive The study was technically adequate Soft Tissue CPT Codes: CPT Neck: 20715-96 CPT Upper extremity: 76653-26 CPT Axilla: 90657-83 CPT Chest wall: 30576-09 CPT Breast: 45805-77-HJ/LT (complete), 28383-66-XI/LT (limited), CPT Upper Back: 31571-49 CPT Lower Back: 91202-62 CPT Abdominal Wall: 41994-84 CPT Pelvic Wall: 64433-69 CPT Lower Extremity: 34732-20 CPT Other Soft Tissue: 59547-63 This study was performed by me, and I personally interpreted all images/videos. Based on my clinical judgement, these images were adequate and did not necessitate further imaging. Critical Care Critical Care Time Critical Care Time: No
[2024-05-29 09:30] VITALS: BP 160/88; PULSE 65; RESP 18; TEMP 36.6; O2SAT 98
== END 2024-05-29 09:32 | disposition home or self-care (01) ==
PROVIDERS: Emergency Provider Student in an Organized Health Care Education/Training Program; PCP Nurse Practitioner Family
DX: L03.031 Cellulitis of right toe (principal); T81.40XA Infection following a procedure, unspecified, initial encounter
CPT/HCPCS: 99283

== ENCOUNTER 2024-06-16 16:35 | Outpatient (CLI) | payer BC, SELFPAY | END 2024-06-16 23:59 | disposition home or self-care (01) | LOC: LAB.DROPOF 06-17 10:39 | PROVIDERS: PCP Nurse Practitioner; Visit Provider Nurse Practitioner | DX: L03.039 Cellulitis of unspecified toe (principal); L60.0 Ingrowing nail | CPT/HCPCS: 87070; 87077; 87186; 87205 ==

== ENCOUNTER 2024-11-11 06:28 | Day surgery (SDC) | payer BC, SELFPAY ==
--- NOTE | 2024-11-10 16:27 | EXP.HP ---
History of Present Illness *Admission Date: 11/11/24 *History of present illness: Mr. Latham is a 44-year-old gentleman who is here for screening colonoscopy. His last colonoscopy was with Daniel Pineda 8 to 10 years ago. He has had some bloating and right sided abdominal discomfort. This improved with a fiber bowel regimen. He was having some mixed alternating IBS with diarrhea and constipation.. The examination is deemed medically necessary for screening colonoscopy. The patient has been seen, interviewed and examined prior to the procedure by both myself and the anesthesia provider. [facility] Disclaimer: The information contained in this section may have been updated after the patient was seen, as this information can be updated by other users. Medical History (Updated 11/11/24 @ 06:52 by Tory Ayala RN) Sleep apnea History of COVID-19 Asthma Irritable bowel syndrome (IBS) Hypothyroid Hypertension Plantar fasciitis, bilateral Bradycardia RITU (obstructive sleep apnea) HLD (hyperlipidemia) Chest pain Abnormal electrocardiography Surgical History (Updated 11/11/24 @ 06:52 by Tory Ayala RN) History of repair of hiatal hernia Family History Other Asthma Cancer Coronary artery disease Heart attack Hypertension Stroke Social History (Updated 11/11/24 @ 06:52 by Tory Ayala RN) Smoking Status: Never smoker alcohol intake: never substance use type: denies use current occupational status: employed Travel in the last 8 weeks?: None household members: spouse housing: house current occupational exposures/hazards: No caffeine: Yes Have you lived/traveled outside US in past 30 days?: No Contact w/someone who lives/traveled outside US past 30 days?: No Exposure to someone with infectious disease in past 14 days?: No Do you have a fever (greater than 100.4 F or 38 C)?: No Have you tested positive for COVID-19?: No Exposed to someone with COVID-19 in past 14 days?: No Do you have a sore throat?: No Do you have a cough?: No Do you have any weakness?: No Are you experiencing any nausea/vomitting?: No Do you have any diarrhea?: No Are you experiencing any unusual bleeding?: No Do you have any muscle aches/pain?: No Do you have any abdominal pain?: No Are you experiencing loss of taste or smell?: No Other Medical History Have you received the Flu Vaccine for this season: No Have you received the Pneumonia Vaccine: No Review of Systems Review of Systems Review of systems (narrative): Negative *Cardiovascular Comments: Negative *Gastrointestinal Comments: Negative *Genitourinary Comments: Negative *Musculoskeletal Comments: Negative *Neurologic Comments: Negative Meds Home Medications and Allergies Home Medications ?Medication ?Instructions ?Recorded ?Confirmed ?Type cetirizine 10 mg tablet (Zyrtec) 10 mg PO DAILY PRN . 10/01/21 11/11/24 History levothyroxine 88 mcg tablet 88 mcg PO DAILY 10/01/21 11/11/24 History montelukast 10 mg tablet 10 mg PO DAILY 10/01/21 11/11/24 History simvastatin 10 mg tablet 10 mg PO DAILY #30 tabs 05/26/23 11/11/24 Rx ezetimibe 10 mg tablet 10 mg PO DAILY 04/07/24 11/11/24 History sodium,potassium,mag sulfates 17.5 See Rx Instructions PO .COMPLEX 10/29/24 11/11/24 Rx gram-3.13 gram-1.6 gram oral soln #354 mL (Suprep Bowel Prep Kit) losartan 25 mg tablet 25 mg PO DAILY 11/11/24 11/11/24 History New Prescriptions to Start Prescriptions: Allergies Allergy/AdvReac Type Severity Reaction Status Date / Time No Known Allergies Allergy Verified 11/11/24 06:44 Exam *Routine HEENT Exam Head: Present normocephalic Eye: Present EOMI and PERRL ENT: Present mucous membranes moist *Routine Neck Exam Neck: Present supple *Routine Respiratory Exam Respiratory: Present CTA bilaterally *Routine Cardiovascular Exam Cardiovascular: Present RRR *Routine Abdominal Exam Abdominal: Present soft and normoactive bowel sounds; Absent tenderness *Routine Rectal Exam Rectal:: deferred *Routine Genitalia Exam Genitalia:: deferred *Routine Extremities Exam Extremities: Absent cyanosis, clubbing or edema *Routine Skin Exam Skin: Present warm; Absent rash *Routine Neurological Exam Neurological: Present alert and oriented X3 Assessment and Plan *Assessment and plan (1) Screening for colon cancer: Status: Acute Category: Medical Code(s): Z12.11 - Encounter for screening for malignant neoplasm of colon Plan A/P: 1. Screening for colon cancer is the preprocedural diagnosis. The patient will be anesthetized/sedated using MAC sedation. The patient has been seen and examined. Cardiac and lung assessment prior to the examination is stable. Proceed with planned screening colonoscopy.
[2024-11-11 06:40] VITALS: BP 137/75; PULSE 66; RESP 18; TEMP 36.1; O2SAT 96; BMI 32.1
[2024-11-11] MEDS: LACTATED RINGERS 1000ML 1,000 ML 50 ML IV (07:00)
--- NOTE | 2024-11-11 07:12 | EXP.ANES.CKL ---
[facility] Disclaimer: The information contained in this section may have been updated after the patient was seen, as this information can be updated by other users. Medical History (Updated 11/11/24 @ 06:52 by Tory Ayala RN) Sleep apnea History of COVID-19 Asthma Irritable bowel syndrome (IBS) Hypothyroid Hypertension Plantar fasciitis, bilateral Bradycardia RITU (obstructive sleep apnea) HLD (hyperlipidemia) Chest pain Abnormal electrocardiography Surgical History (Updated 11/11/24 @ 06:52 by Tory Ayala RN) History of repair of hiatal hernia Family History Other Asthma Cancer Coronary artery disease Heart attack Hypertension Stroke Social History (Updated 11/11/24 @ 06:52 by Tory Ayala RN) Smoking Status: Never smoker alcohol intake: never substance use type: denies use current occupational status: employed Travel in the last 8 weeks?: None household members: spouse housing: house current occupational exposures/hazards: No caffeine: Yes Have you lived/traveled outside US in past 30 days?: No Contact w/someone who lives/traveled outside US past 30 days?: No Exposure to someone with infectious disease in past 14 days?: No Do you have a fever (greater than 100.4 F or 38 C)?: No Have you tested positive for COVID-19?: No Exposed to someone with COVID-19 in past 14 days?: No Do you have a sore throat?: No Do you have a cough?: No Do you have any weakness?: No Are you experiencing any nausea/vomitting?: No Do you have any diarrhea?: No Are you experiencing any unusual bleeding?: No Do you have any muscle aches/pain?: No Do you have any abdominal pain?: No Are you experiencing loss of taste or smell?: No [facility] Anesthesia Checklist Patient Identification Patient Identification: Arm Band Structural Data Admitted From: Home Planned Operative Procedure/s: Colonoscopy Consent for Planned Operative Procedure(s) Verified: Yes Verified Documents: Surgical Consent and History and Physical NPO Status Verified Time NPO: 00:00 Additional verifications Anesthesia Reactions: No Airway Assessment Mallampati Score:: Class II C-Spine Mobility Assessed: Yes TMJ Mobility Assessed: Yes Dentition: Good Dentition Neurological Assessment Level of Consciousness: Awake, Alert and Appropriate Anesthesia Plan Anesthesia Risk discussed: Yes Anesthesia Plan: Verified ASA Class: II Anesthesia Type: MAC
--- NOTE | 2024-11-11 07:56 | P.PCN_ITS ---
[facility] Procedure Note Date: 11/11/24 Time: 08:11 Procedure Note:: Colonoscopy Procedure Report: Colonoscopy with cold snare polypectomy Endoscopist: Bryan Barnett II, MD Referring physician: ALDO Puente Date of Procedure: November 11, 2024 Equipment: Olympus [id number] adult colonoscope Sedation: MAC sedation Indication: Mr. Latham is a 44-year-old gentleman who is here for screening colonoscopy. His last colonoscopy was with Daniel Pineda 8 to 10 years ago. He was having some bloating and right sided abdominal discomfort. This improved with a fiber bowel regimen. He was having some mixed alternating IBS with diarrhea and constipation. Bowel function has improved. He has had prior hiatal hernia repair/fundoplication (Eddie Field MD). He did have a normal gallbladder ultrasound and his HIDA scan showed 95% gallbladder ejection fraction. He reports no rectal bleeding, abdominal pain, weight loss or family history of colon cancer. Procedure: Prior to the procedure, a history and physical exam was performed, and patient's medications and allergies were reviewed. The risks, benefits and alternatives of the sedation and procedure were discussed with the patient. All questions were answered and informed consent was obtained. The patient was brought to the procedure room. Patient identification and proposed procedure were verified by the physician and the nurse. The patient was placed in a left lateral decubitus position and the scope was passed under direct vision. Throughout the procedure, the patient's blood pressure, pulse, and oxygen saturations were monitored continuously. The colonoscopy was accomplished without difficulty. The patient tolerated the procedure well. Findings: On digital rectal examination there was normal rectal tone. There were no external hemorrhoids. The colonoscope was introduced through the anal canal to the rectum and advanced to the cecum. The ileocecal valve and appendiceal orifice were identified. The scope was advanced a short distance into the ileum which appeared grossly normal. The scope was then withdrawn into the colon. The cecum, ascending, transverse and descending colon and mucosa were grossly normal. There was a single 8 to 9 mm sessile polyp in the proximal sigmoid colon removed via cold snare polypectomy. There were mildly scattered diverticuli throughout the descending and sigmoid colon (LEFT colon). The rectum itself was normal. Upon retroflexion within the rectum there were grade 1-2 internal hemorrhoids. The preparation was excellent throughout with [place] Preparation Score of 9. The cecal time was 12 minutes. Impression: 1. Sigmoid colon polyp (8 to 9 mm) 2. Mild left-sided diverticulosis 3. Grade 1-2 internal hemorrhoids Plan: I will follow-up the polyp histology and recommend repeat screening/surveillance colonoscopy again in 5 years. I would recommend that he continue the fiber bowel regimen (combined MiraLAX plus Konsyl) and dietary measures on a long-term daily maintenance basis.
[2024-11-11 08:12] VITALS: BP 110/58; PULSE 71; RESP 16; TEMP 36.1; O2SAT 99
[2024-11-11 08:22] VITALS: BP 110/66; PULSE 69; RESP 16; O2SAT 96
[2024-11-11 08:32] VITALS: BP 123/66; PULSE 69; RESP 18; O2SAT 96
[2024-11-11 08:42] VITALS: BP 123/70; PULSE 70; RESP 18; TEMP 36.1; O2SAT 96
[2024-11-11 09:12] VITALS: BP 132/79; PULSE 60; RESP 18; TEMP 36.1; O2SAT 98
== END 2024-11-11 09:12 | disposition home or self-care (01) ==
PROVIDERS: PCP Nurse Practitioner Family; Visit Provider Internal Medicine Gastroenterology
PROC: 0DJD8ZZ Inspection of Lower Intestinal Tract, Via Natural or Artificial Opening Endoscopic (ICD-10-PCS; CPT 45378; principal; 2024-11-11 08:00)
DX: Z12.11 Encounter for screening for malignant neoplasm of colon (principal); D12.5 Benign neoplasm of sigmoid colon; K57.90 Diverticulosis of intestine, part unspecified, without perforation or abscess without bleeding; K64.0 First degree hemorrhoids; K64.1 Second degree hemorrhoids; J45.909 Unspecified asthma, uncomplicated; E78.5 Hyperlipidemia, unspecified; E03.9 Hypothyroidism, unspecified; Z79.890 Hormone replacement therapy
CPT/HCPCS: 45385; J2003; J2704; J7120